=== PATIENT | female | born 1965 | race American Indian/Alaskan Native ===

== ENCOUNTER 2019-11-14 07:33 | Outpatient (CLI) | payer OTHER ==
--- NOTE | 2019-11-14 12:48 | Mammography Report ---
DIGITAL SCREENING MAMMOGRAM WITH CAD, 11/14/2019 INDICATION: Routine screening mammography. TECHNIQUE: Digital bilateral 2D mammography was obtained in the craniocaudal and mediolateral obliq ue projections. This examination was interpreted with the benefit of Computer-Aided Detection analysi s. COMPARISON: None available. However, she indicated that she had had a previous mammogram at either [place]. FINDINGS: Breast Density: The breasts are heterogeneously dense, which may obscure small masses. Bilateral retroareolar calcifications and a left retroareolar asymmetry on the MLO view require dre rison with the prior mammogram or additional imaging. No architectural distortion. IMPRESSION: Comparison with a previous mammogram is recommended. We will attempt to obtain a prior ma mmogram for comparison. If we do not obtain a prior mammogram within 30 days, a revised report will b e issued recommending a recall for additional imaging. Please be advised that the patient should not schedule an appointment for return until adequate time (at least 2 weeks) has passed for us to obtain the prior mammogram. Follow up recommendation: Obtain prior study for comparison Category 0: Incomplete. Needs additional imaging evaluation and/or prior mammograms for comparison. A "normal" or negative report should not discourage follow up or biopsy of a clinically significant f inding. A written summary of these findings will be mailed to the patient. The patient will be entered into a mammography reporting system which will generate a reminder letter for the patient's next appointmen t at the appropriate interval. The [employer] recommends yearly mammograms starting at age 40 and continuing as l bharat as a woman is in good health. Breast MRI is recommended for women with an approximate 20-25% or greater lifetime risk of breast cancer, including women with a strong family history of breast or ova deandre cancer or who have been treated for Hodgkin's disease. Signer Name: Gustavo Plaza MD Signed: 11/14/2019 12:44 PM Workstation Name: [id number]
== END 2019-11-14 07:34 | disposition home or self-care (01) ==
LOC: MAMMO 07:33
PROVIDERS: ATTEND Obstetrics & Gynecology
DX: Z12.31 Encounter for screening mammogram for malignant neoplasm of breast (principal)
CPT/HCPCS: 77067

== ENCOUNTER 2020-12-11 15:53 | Emergency (ER) | payer OTHER ==
[2020-12-11 16:21] VITALS: BP 104/86
[2020-12-11] MEDS ORDERED: dexAMETHasone 20 MG/5 ML VIAL IM ONE (17:08)
--- NOTE | 2020-12-11 17:09 | Emergency Department Report ---
ED General Adult HPI - General Chief complaint: Upper Respiratory Infection Stated complaint: CHEST PAIN/THROAT/HEAD PAIN Time Seen by Provider: 12/11/20 16:39 Source: patient Mode of arrival: Ambulatory Limitations: No Limitations - History of Present Illness Initial comments: 55-year-old -[place] female patient presents with complaints of facial pain and pressure, intermittent cough, and fatigue x5 days. Patient states a history of recurrent sinus infections. She states she is currently following with an ENT specialist and was last on antibiotics and August 2020. No fever/chills/sweats per patient, loss of taste/smell, chest pain, shortness of breath, neck pain, or difficulty moving her neck. Patient rates her facial pain as a 8/10 in severity and states it is not improving with OTC medications. Severity scale (0 -10): 10 - Related Data Previous Rx's Medication Instructions Recorded Last Taken Type Naproxen [Naprosyn TAB] 500 mg PO BID #30 tablet 12/01/15 Unknown Rx traMADoL [Ultram 50 MG tab] 50 mg PO Q6HR PRN #20 tablet 12/01/15 Unknown Rx Amoxicillin/Potassium Clav 1 each PO BID 10 Days #20 tablet 12/11/20 Unknown Rx [Augmentin 875-125 Tablet] Prednisone [predniSONE 10 mg 10 mg PO .TAPER #1 tab.ds.pk 12/11/20 Unknown Rx (6-Day Pack, 21 Tabs)] Allergies Allergy/AdvReac Type Severity Reaction Status Date / Time No Known Allergies Allergy Verified 12/11/20 16:10 ED Review of Systems ROS: Stated complaint: CHEST PAIN/THROAT/HEAD PAIN Other details as noted in HPI Constitutional: denies: chills, fever Eyes: denies: eye pain, eye discharge, vision change ENT: throat pain. denies: ear pain, dental pain Respiratory: cough. denies: shortness of breath Cardiovascular: denies: chest pain Gastrointestinal: denies: nausea, vomiting Musculoskeletal: denies: back pain Skin: denies: lesions, change in color Neurological: denies: headache Hematological/Lymphatic: swollen glands ED Past Medical Hx - Past Medical History Additional medical history: Peptic ulcers - Surgical History Additional Surgical History: tubal ligation, tonsillectomy - Social History Smoking Status: Never Smoker Substance Use Type: Alcohol - Medications Home Medications: Home Medications Medication Instructions Recorded Confirmed Last Taken Type Naproxen [Naprosyn TAB] 500 mg PO BID #30 tablet 12/01/15 Unknown Rx traMADoL [Ultram 50 MG tab] 50 mg PO Q6HR PRN #20 tablet 12/01/15 Unknown Rx Amoxicillin/Potassium Clav 1 each PO BID 10 Days #20 tablet 12/11/20 Unknown Rx [Augmentin 875-125 Tablet] Prednisone [predniSONE 10 mg 10 mg PO .TAPER #1 tab.ds.pk 12/11/20 Unknown Rx (6-Day Pack, 21 Tabs)] ED Physical Exam - General Limitations: No Limitations General appearance: alert, in no apparent distress - Head Head exam: Present: atraumatic, normocephalic - Eye Eye exam: Present: normal appearance - ENT ENT exam: Present: normal orophraynx, mucous membranes moist, other (Tonsils are surgically removed; bilateral maxillary and frontal tenderness to palpation noted; nares are patent) - Expanded ENT Exam Expanded Mouth exam: Present: tongue normal. Absent: drooling, trismus, muffled voice Throat exam: Positive: normal inspection - Neck Neck exam: Present: full ROM, lymphadenopathy (Mild submandibular lymphadenopathy noted). Absent: tenderness - Respiratory Respiratory exam: Present: normal lung sounds bilaterally. Absent: respiratory distress - Cardiovascular Cardiovascular Exam: Present: regular rate, normal rhythm. Absent: systolic murmur, diastolic murmur, rubs, gallop - Extremities Exam Extremities exam: Present: full ROM - Back Exam Back exam: Present: normal inspection - Neurological Exam Neurological exam: Present: alert, oriented X3, normal gait - Psychiatric Psychiatric exam: Present: normal affect, normal mood ED Course Vital Signs 12/11/20 16:19 Temperature 98.0 F Pulse Rate 77 Respiratory 16 Rate Blood Pressure 104/86 [Right] O2 Sat by Pulse 99 Oximetry ED Medical Decision Making - Medical Decision Making 55-year-old -[place] female patient presents with complaints of facial pain and pressure, intermittent cough, and fatigue x5 days. Patient states a history of recurrent sinus infections. She states she is currently following with an ENT specialist and was last on antibiotics and August 2020. No fever/chills/sweats per patient, loss of taste/smell, chest pain, shortness of breath, neck pain, or difficulty moving her neck. Patient rates her facial pain as a 8/10 in severity and states it is not improving with OTC medications. We will treat for acute bacterial sinusitis with Augmentin and prednisone. Recommend follow-up with ENT specialist. Her vitals are normal, she is well- appearing, she is stable for discharge home. Signs and symptoms that should prompt immediate return to the emergency department were discussed in detail with patient who verbalizes understanding. Also recommend patient get Covid testing. Critical care attestation.: If time is entered above; I have spent that time in minutes in the direct care of this critically ill patient, excluding procedure time. ED Disposition Clinical Impression: Sinusitis Qualifiers: Sinusitis location: maxillary Chronicity: acute Recurrence: recurrent Qualified Code(s): J01.01 - Acute recurrent maxillary sinusitis Disposition: TO HOME OR SELFCARE Is pt being admited?: No Condition: Stable Instructions: Sinusitis, Adult, [id number] Prescriptions: Amoxicillin/Potassium Clav [Augmentin 875-125 Tablet] 1 each PO BID 10 Days #20 tablet Prednisone [predniSONE 10 mg (6-Day Pack, 21 Tabs)] 10 mg PO .TAPER #1 tab.ds.pk Referrals: SANDRA COLVIN MD [Staff Physician] - 3-5 Days Forms: Work/School Release Form(ED)
== END 2020-12-11 17:53 | disposition home or self-care (01) ==
LOC: ED 15:53
DX: J32.9 Chronic sinusitis, unspecified (principal); Z79.899 Other long term (current) drug therapy; Z90.49 Acquired absence of other specified parts of digestive tract; Z98.51 Tubal ligation status
CPT/HCPCS: 96372; 99282; J1100

== ENCOUNTER 2021-06-02 19:25 | Emergency (ER) | payer SELFPAY | END 2021-06-03 20:58 | LOC: ED 19:25 | DX: R51.9 Headache, unspecified (principal); Z53.21 Procedure and treatment not carried out due to patient leaving prior to being seen by health care provider ==

== ENCOUNTER 2021-09-05 11:29 | Emergency (ER) | payer BC ==
[2021-09-05 12:10] VITALS: BP 112/73
--- NOTE | 2021-09-05 12:21 | Emergency Department Report ---
ED Eye Problem HPI - General Chief complaint: Eye Problems Stated complaint: EYE PROBLEM Time Seen by Provider: 09/05/21 12:02 Source: patient Mode of arrival: Ambulatory Limitations: No Limitations - History of Present Illness Initial comments: pt is a 55 yo female who presents to the ED with c/o left eye redness and irritation that began yesterday. she denies anything getting into the eye. she denies any drainage or watering. she denies any contact lens use. she denies any vision changes. no allergies to meds - Related Data Previous Rx's Medication Instructions Recorded Last Taken Type Naproxen [Naprosyn TAB] 500 mg PO BID #30 tablet 12/01/15 Unknown Rx traMADoL [Ultram 50 MG tab] 50 mg PO Q6HR PRN #20 tablet 12/01/15 Unknown Rx Amoxicillin/Potassium Clav 1 each PO BID 10 Days #20 tablet 12/11/20 Unknown Rx [Augmentin 875-125 Tablet] Prednisone [predniSONE 10 mg 10 mg PO .TAPER #1 tab.ds.pk 12/11/20 Unknown Rx (6-Day Pack, 21 Tabs)] Ketotifen Fumarate 1 drop OS BID #1 bottle 09/05/21 Unknown Rx Polymyxin B Sulf/Trimethoprim 1 drop OS Q3HR 7 Days #1 bottle 09/05/21 Unknown Rx [Polytrim Eye Drops] Allergies Allergy/AdvReac Type Severity Reaction Status Date / Time No Known Allergies Allergy Verified 09/05/21 11:41 ED Review of Systems ROS: Stated complaint: EYE PROBLEM Other details as noted in HPI Comment: All other systems reviewed and negative ED Past Medical Hx - Past Medical History Previous Medical History?: Yes Additional medical history: Peptic ulcers - Surgical History Additional Surgical History: tubal ligation, tonsillectomy - Social History Smoking Status: Never Smoker Substance Use Type: None - Medications Home Medications: Home Medications Medication Instructions Recorded Confirmed Last Taken Type Naproxen [Naprosyn TAB] 500 mg PO BID #30 tablet 12/01/15 Unknown Rx traMADoL [Ultram 50 MG tab] 50 mg PO Q6HR PRN #20 tablet 12/01/15 Unknown Rx Amoxicillin/Potassium Clav 1 each PO BID 10 Days #20 tablet 12/11/20 Unknown Rx [Augmentin 875-125 Tablet] Prednisone [predniSONE 10 mg 10 mg PO .TAPER #1 tab.ds.pk 12/11/20 Unknown Rx (6-Day Pack, 21 Tabs)] Ketotifen Fumarate 1 drop OS BID #1 bottle 09/05/21 Unknown Rx Polymyxin B Sulf/Trimethoprim 1 drop OS Q3HR 7 Days #1 bottle 09/05/21 Unknown Rx [Polytrim Eye Drops] ED Physical Exam - General Limitations: No Limitations General appearance: alert, in no apparent distress - Head Head exam: Present: atraumatic, normocephalic - Eye Eye exam: Present: PERRL, EOMI, conjunctival injection (left). Absent: periorbital swelling, periorbital tenderness - ENT ENT exam: Present: mucous membranes moist - Neurological Exam Neurological exam: Present: alert, oriented X3 - Psychiatric Psychiatric exam: Present: normal affect, normal mood - Skin Skin exam: Present: warm, dry, intact ED Course Vital Signs 09/05/21 09/05/21 09/05/21 11:43 11:59 12:00 Temperature 97.9 F 98.7 F Pulse Rate 68 62 Respiratory 15 12 14 Rate Blood Pressure 127/88 112/73 Blood Pressure [Left] O2 Sat by Pulse 96 100 99 Oximetry 09/05/21 12:12 Temperature 98.7 F Pulse Rate 62 Respiratory 14 Rate Blood Pressure Blood Pressure 112/73 [Left] O2 Sat by Pulse 99 Oximetry ED Medical Decision Making - Medical Decision Making pt is a 55 yo female who presents to the ED with c/o left eye redness and irritation that began yesterday. she denies anything getting into the eye. she denies any drainage or watering. she denies any contact lens use. she denies any vision changes. no allergies to meds. Vitals are normal. On exam: Left conjunctival injection, no drainage, EOMI, PERRLA, no periorbital edema or erythema. Examination appears consistent with conjunctivitis. Patient given prescription for medication. Advised patient please use medication as prescribed. please separate using eye drops by one hour. follow up with your critical care nurse specialist. return to the emergency room for any new or worsening symptoms Critical care attestation.: If time is entered above; I have spent that time in minutes in the direct care of this critically ill patient, excluding procedure time. ED Disposition Clinical Impression: Conjunctivitis Qualifiers: Conjunctivitis type: acute Acute conjunctivitis type: unspecified Laterality: left Qualified Code(s): H10.32 - Unspecified acute conjunctivitis, left eye Disposition: 01 HOME / SELF CARE / HOMELESS Is pt being admited?: No Does the pt Need Aspirin: No Condition: Stable Instructions: Viral Conjunctivitis, Adult, Bacterial Conjunctivitis, Adult Additional Instructions: please use medication as prescribed. please separate using eye drops by one hour. follow up with your critical care nurse specialist. return to the emergency room for any new or worsening symptoms Prescriptions: Ketotifen Fumarate 1 drop OS BID #1 bottle Polymyxin B Sulf/Trimethoprim [Polytrim Eye Drops] 1 drop OS Q3HR 7 Days #1 bottle Referrals: your, critical care nurse specialist [Other] - 3-5 Days Forms: Work/School Release Form(ED) Time of Disposition: 12:21 Print Language: SINHALA
== END 2021-09-05 13:18 | disposition home or self-care (01) ==
LOC: ED 11:29
DX: H10.32 Unspecified acute conjunctivitis, left eye (principal)
CPT/HCPCS: 99282

== ENCOUNTER 2021-11-05 08:13 | Emergency (ER) | payer SELFPAY ==
[2021-11-05 10:43] VITALS: BP 120/80
== END 2021-11-05 10:46 | disposition home or self-care (01) ==
LOC: ED 08:13
DX: J40 Bronchitis, not specified as acute or chronic (principal); F12.90 Cannabis use, unspecified, uncomplicated; Z90.89 Acquired absence of other organs; Z98.51 Tubal ligation status; Z79.899 Other long term (current) drug therapy
CPT/HCPCS: 71046; 93005; 93010; 99283

== ENCOUNTER 2021-12-31 13:48 | Emergency (ER) | payer BC ==
[2021-12-31] MEDS ORDERED: METOCLOPRAMIDE 10 MG/2 ML INJ IV ONE (15:10)
[2021-12-31] MEDS ORDERED: FAMOTIDINE 20 MG/2 ML INJ IV ONE (15:10)
[2021-12-31] MEDS ORDERED: DICYCLOMINE 20 MG TAB PO ONE (15:10)
[2021-12-31] MEDS ORDERED: SODIUM CHLORIDE 0.9% 1000 ML 1,000 ML IV ONE ×3 (15:10→20:36)
[2021-12-31] MEDS ORDERED: diphenhydrAMINE 50 MG/ML VIAL IV ONE (15:10)
[2021-12-31 16:19] LABS: Basophils % (Auto) 0.6 % (0.0-1.8); Eosinophils # (Auto) 0.2 K/mm3 (0.0-0.4); Eosinophils % (Auto) 4.5 % (0.0-4.3); Hematocrit 42.6 % (30.3-42.9); Hemoglobin 14.1 gm/dl (10.1-14.3); Lymphocytes # (Auto) 1.3 K/mm3 (1.2-5.4); Lymphocytes % (Auto) 30.2 % (13.4-35.0); Mean Corpuscular HGB Conc 33 % (30-34); Mean Corpuscular Volume 95 fl (79-97); Monocytes # (Auto) 0.5 K/mm3 (0.0-0.8); Monocytes % (Auto) 11.9 % (0.0-7.3); Platelet Count 162 K/mm3 (140-440); Red Cell Distribution Width 14.4 % (13.2-15.2)
[2021-12-31 16:33] LABS: Albumin 4.1 g/dL (3.9-5); Calcium 9.3 mg/dL (8.4-10.2)
--- NOTE | 2021-12-31 18:42 | Cat Scan Report ---
CT ABDOMEN AND PELVIS WITH INTRAVENOUS CONTRAST INDICATION / CLINICAL INFORMATION: Abdominal pain with nausea, vomiting and diarrhea. TECHNIQUE: 100 cc Omnipaque [address] scans at this location are performed using CT d ose reduction for ALEXANDRA by means of automated exposure control. COMPARISON: None available. FINDINGS: ABDOMEN: There are several small simple hepatic cysts, the largest which measures 1.8 cm in the media l segment of the left lobe. There is a 1.2 cm hypervascular lesion in the superior aspect of the live r consistent with flash filling of a hemangioma or a small vascular malformation. The gallbladder, bi le ducts, pancreas, spleen, adrenal glands and kidneys are normal. There is a moderate amount of stool throughout the colon. I see no evidence of bowel obstruction, wal l thickening or free air. No adenopathy is present. There are [id number] atherosclerotic calcif ications involving aorta without aneurysm. The lung bases are clear. PELVIS: There is an enlarged uterus containing multiple fibroids. I see no evidence of adnexal mass o r free fluid. The distal ureters and urinary bladder are normal. A normal appendix is present and the re is no evidence of diverticulitis. I do not identify a hernia. There is mild lower lumbar spondylos is. IMPRESSION: 1. No acute abnormality is identified. 2. Enlarged uterus containing multiple fibroids. Signer Name: Andi Arnold MD Signed: 12/31/2021 6:38 PM Workstation Name: [id number]
[2021-12-31 19:56] LABS: Bilirubin,Urine NEG (Negative); Blood,Urine MOD (Negative); Color,Urine Straw (Yellow); Mucus,Urine FEW /HPF; Protein,Urine <15 mg/dL mg/dL (Negative); Urobilinogen,Urine < 2.0 mg/dL (<2.0); WBC,Urine < 1.0 /HPF (0.0-6.0)
[2021-12-31 19:57] LABS: HCG Qualitative,Urine Negative (Negative)
--- NOTE | 2021-12-31 20:44 | Emergency Department Report ---
ED N/V/D HPI - General Chief complaint: Nausea/Vomiting/Diarrhea Stated complaint: STOMACH VIRUS/DIARRHEA Time Seen by Provider: 12/31/21 15:09 Source: patient Mode of arrival: Ambulatory Limitations: No Limitations - History of Present Illness Initial comments: This is a 56-year-old female nontoxic, well nourished in appearance, no acute signs of distress presents to the ED with c/o of nausea, vomiting, diarrhea, abdominal pain several days. Patient describes vomiting as food content and yellow gastric acid. Patient describes abdominal pain as sharp and aching with level of 6/10 diffuse. Patient denies chest pain, short of breath, fever, h emoptysis, blood in stool, chills, headache, stiff neck, numbness or tingling. Patient denies any constipation. Denies any blood in stool. Patient denies any recent travels. Patient denies any allergies. MD complaint: nausea, vomiting, diarrhea -: days(s) Associated Abdominal Pain: No Location: diffuse Radiation: none Severity: mild Pain Scale: 7 Quality: cramping, sharp Consistency: intermittent Improves with: none Worsens with: none Associated Symptoms: nausea/vomiting. denies: myalgias, chest pain, cough, diaphoresis, fever/chills, headaches, loss of appetite, malaise, rash, dysuria, shortness of breath, syncope, weakness - Related Data Previous Rx's Medication Instructions Recorded Last Taken Type Prednisone [predniSONE 10 mg 10 mg PO .TAPER #1 tab.ds.pk 12/11/20 Unknown Rx (6-Day Pack, 21 Tabs)] Ketotifen Fumarate 1 drop OS BID #1 bottle 09/05/21 Unknown Rx Polymyxin B Sulf/Trimethoprim 1 drop OS Q3HR 7 Days #1 bottle 09/05/21 Unknown Rx [Polytrim Eye Drops] Acetaminophen [Non-Aspirin Extra 500 mg PO Q6HR PRN #30 tablet 11/05/21 Unknown Rx Strength] Albuterol Sulfate [Proair 90 mcg IH Q4HR PRN #2 aer.pow.ba 11/05/21 Unknown Rx Respiclick] Benzonatate [Tessalon Perles] 100 mg PO Q8HR PRN #30 capsule 11/05/21 Unknown Rx Ibuprofen [Motrin] 600 mg PO Q8H PRN #30 tablet 11/05/21 Unknown Rx Dicyclomine [Bentyl] 20 mg PO BID PRN #12 tablet 12/31/21 Unknown Rx Ondansetron [Zofran Odt] 4 mg PO Q8HR PRN #12 tab.rapdis 12/31/21 Unknown Rx Allergies Allergy/AdvReac Type Severity Reaction Status Date / Time No Known Allergies Allergy Verified 09/05/21 11:41 ED Review of Systems ROS: Stated complaint: STOMACH VIRUS/DIARRHEA Other details as noted in HPI Comment: All other systems reviewed and negative Constitutional: denies: chills, fever Eyes: denies: eye pain, eye discharge, vision change ENT: denies: ear pain, throat pain Respiratory: denies: cough, shortness of breath, wheezing Cardiovascular: denies: chest pain, palpitations Endocrine: no symptoms reported Gastrointestinal: abdominal pain, nausea, vomiting, diarrhea. denies: constipation, hematemesis, melena, hematochezia Genitourinary: denies: urgency, dysuria, discharge Musculoskeletal: denies: back pain, joint swelling, arthralgia Skin: denies: rash, lesions Neurological: denies: headache, weakness, paresthesias Psychiatric: denies: anxiety, depression Hematological/Lymphatic: denies: easy bleeding, easy bruising ED Past Medical Hx - Past Medical History Additional medical history: Peptic ulcers - Surgical History Additional Surgical History: tubal ligation, tonsillectomy - Social History Smoking Status: Never Smoker Substance Use Type: None - Medications Home Medications: Home Medications Medication Instructions Recorded Confirmed Last Taken Type Prednisone [predniSONE 10 mg 10 mg PO .TAPER #1 tab.ds.pk 12/11/20 Unknown Rx (6-Day Pack, 21 Tabs)] Ketotifen Fumarate 1 drop OS BID #1 bottle 09/05/21 Unknown Rx Polymyxin B Sulf/Trimethoprim 1 drop OS Q3HR 7 Days #1 bottle 09/05/21 Unknown Rx [Polytrim Eye Drops] Acetaminophen [Non-Aspirin Extra 500 mg PO Q6HR PRN #30 tablet 11/05/21 Unknown Rx Strength] Albuterol Sulfate [Proair 90 mcg IH Q4HR PRN #2 aer.pow.ba 11/05/21 Unknown Rx Respiclick] Benzonatate [Tessalon Perles] 100 mg PO Q8HR PRN #30 capsule 11/05/21 Unknown Rx Ibuprofen [Motrin] 600 mg PO Q8H PRN #30 tablet 11/05/21 Unknown Rx Dicyclomine [Bentyl] 20 mg PO BID PRN #12 tablet 12/31/21 Unknown Rx Ondansetron [Zofran Odt] 4 mg PO Q8HR PRN #12 tab.rapdis 12/31/21 Unknown Rx ED Physical Exam - General Limitations: No Limitations General appearance: alert, in no apparent distress - Head Head exam: Present: atraumatic, normocephalic - Eye Eye exam: Present: normal appearance - Neck Neck exam: Present: normal inspection, full ROM. Absent: lymphadenopathy - Respiratory Respiratory exam: Present: normal lung sounds bilaterally. Absent: respiratory distress, wheezes, rales, rhonchi, stridor, chest wall tenderness, accessory muscle use, decreased breath sounds, prolonged expiratory - Cardiovascular Cardiovascular Exam: Present: regular rate, normal rhythm, normal heart sounds. Absent: bradycardia, tachycardia, irregular rhythm, systolic murmur, diastolic murmur, rubs, gallop - GI/Abdominal GI/Abdominal exam: Present: soft, tenderness (diffuse), normal bowel sounds. Absent: distended, guarding, rebound, rigid, diminished bowel sounds - Extremities Exam Extremities exam: Present: full ROM - Back Exam Back exam: Present: normal inspection, full ROM. Absent: tenderness, CVA tenderness (R), CVA tenderness (L), muscle spasm, paraspinal tenderness, vertebral tenderness, rash noted - Neurological Exam Neurological exam: Present: alert, oriented X3, normal gait - Psychiatric Psychiatric exam: Present: normal affect, normal mood - Skin Skin exam: Present: warm, dry, intact, normal color. Absent: rash ED Course Vital Signs 12/31/21 12/31/21 12/31/21 14:42 20:21 21:09 Temperature 98.1 F Pulse Rate 64 60 Respiratory 18 12 Rate Blood Pressure 122/83 Blood Pressure 119/73 132/82 [Left] O2 Sat by Pulse 98 100 Oximetry - Reevaluation(s) Reevaluation #1: 12/31/21 20:36 Patient is speaking in full sentences with no signs of distress noted. ED Medical Decision Making - Lab Data Result diagrams: 12/31/21 16:03 12/31/21 16:03 Lab Results 12/31/21 12/31/21 12/31/21 Range/Units 16:03 16:03 19:42 WBC 4.3 L (4.5-11.0) K/mm3 RBC 4.50 (3.65-5.03) M/mm3 Hgb 14.1 (10.1-14.3) gm/dl Hct 42.6 (30.3-42.9) % MCV 95 (79-97) fl MCH 31 (28-32) pg MCHC 33 (30-34) % RDW 14.4 (13.2-15.2) % Plt Count 162 (140-440) K/mm3 Lymph % (Auto) 30.2 (13.4-35.0) % Prentiss % (Auto) 11.9 H (0.0-7.3) % Eos % (Auto) 4.5 H (0.0-4.3) % Baso % (Auto) 0.6 (0.0-1.8) % Lymph # (Auto) 1.3 (1.2-5.4) K/mm3 Prentiss # (Auto) 0.5 (0.0-0.8) K/mm3 Eos # (Auto) 0.2 (0.0-0.4) K/mm3 Baso # (Auto) 0.0 (0.0-0.1) K/mm3 Seg Neutrophils % 52.8 (40.0-70.0) % Seg Neutrophils # 2.3 (1.8-7.7) K/mm3 Sodium 138 (137-145) mmol/L Potassium 3.8 (3.6-5.0) mmol/L Chloride 101.9 (98-107) mmol/L Carbon Dioxide 25 (22-30) mmol/L Anion Gap 15 mmol/L BUN 11 (7-17) mg/dL Creatinine 1.2 (0.6-1.2) mg/dL Estimated GFR 57 ml/min BUN/Creatinine Ratio 9 % Glucose 83 (65-100) mg/dL Calcium 9.3 (8.4-10.2) mg/dL Total Bilirubin 0.40 (0.1-1.2) mg/dL AST 11 (5-40) units/L ALT 17 (7-56) units/L Alkaline Phosphatase 71 (35-129) units/L Total Protein 6.8 (6.3-8.2) g/dL Albumin 4.1 (3.9-5) g/dL Albumin/Globulin Ratio 1.5 % Lipase 28 (13-60) units/L Urine Color Straw (Yellow) Urine Turbidity Clear (Clear) Urine pH 7.0 (5.0-7.0) Ur Specific Dameron 1.055 H (1.003-1.030) Urine Protein <15 mg/dl (Negative) mg/dL Urine Glucose (UA) Neg (Negative) mg/dL Urine Ketones Neg (Negative) mg/dL Urine Blood Mod (Negative) Urine Nitrite Neg (Negative) Urine Bilirubin Neg (Negative) Urine Urobilinogen < 2.0 (<2.0) mg/dL Ur Leukocyte Esterase Neg (Negative) Urine WBC (Auto) < 1.0 (0.0-6.0) /HPF Urine RBC (Auto) 1.0 (0.0-6.0) /HPF U Epithel Cells (Auto) 4.0 (0-13.0) /HPF Urine Mucus Few /HPF Urine HCG, Qual Negative (Negative) - Radiology Data [facility] [address] [place] [address] Cat Scan Report Signed Patient: CRISTIAN MONTENEGRO MR#: [id number] 24 : 1965 Acct:[id number] Age/Sex: 56 / F ADM Date: 12/31/21 Loc: ED Attending Dr: Ordering Physician: DAMARIS CARRIZALES NP Date of Service: 12/31/21 Procedure(s): CT abdomen pelvis w con Accession Number(s): [id number] cc: DAMARIS CARRIZALES NP CT ABDOMEN AND PELVIS WITH INTRAVENOUS CONTRAST INDICATION / CLINICAL INFORMATION: Abdominal pain with nausea, vomiting and diarrhea. TECHNIQUE: 100 cc Omnipaque [address] scans at this location are performed using CT dose reduction for ALARA by means of automated exposure control. COMPARISON: None available. FINDINGS: ABDOMEN: There are several small simple hepatic cysts, the largest which measures 1.8 cm in the medial segment of the left lobe. There is a 1.2 cm hypervascular lesion in the superior aspect of the liver consistent with flash filling of a hemangioma or a small vascular malformation. The gallbladder, bile ducts, pancreas, spleen, adrenal glands and kidneys are normal. There is a moderate amount of stool throughout the colon. I see no evidence of bowel obstruction, wall thickening or free air. No adenopathy is present. There are [id number] atherosclerotic calcifications involving aorta without aneurysm. The lung bases are clear. PELVIS: There is an enlarged uterus containing multiple fibroids. I see no evidence of adnexal mass or free fluid. The distal ureters and urinary bladder are normal. A normal appendix is present and there is no evidence of diverticulitis. I do not identify a hernia. There is mild lower lumbar spondylosis. IMPRESSION: 1. No acute abnormality is identified. 2. Enlarged uterus containing multiple fibroids. Signer Name: Andi Arnold MD Signed: 12/31/2021 6:38 PM Workstation Name: [id number] Transcribed By: RT Dictated By: Andi Arnold MD Electronically Authenticated By: Andi Arnold MD Signed Date/Time: 12/31/211837 DD/ 32 TD/TT: - Medical Decision Making This is a 56-year-old female that presents with nausea, diarrhea and abdominal pain. Patient is stable and was examined by me. Labs obtained. UA obtained. Xr abdomen/chest xray obtained and dictated by the radiologist. Patient is notified of the report with no questions noted by the patient. Vital signs are stable prior to discharge. Patient received Zofran and 1L Normal saline in the ED which patient stated symptoms has resovled and subsided. A by mouth challenge has been obtained and patient tolerated well with no nausea vomiting. Patient was also instructed to Follow-up with a primary care doctor in 3-5 days or if symptoms worsen and continue return to emergency room as soon as possible. At time of discharge, the patient does not seem toxic or ill in appearance. No acute signs of distress noted. Patient agrees to discharge treatment plan of care. No further questions noted by the patient. Critical care attestation.: If time is entered above; I have spent that time in minutes in the direct care of this critically ill patient, excluding procedure time. ED Disposition Clinical Impression: Nausea Abdominal pain Qualifiers: Abdominal location: generalized Qualified Code(s): R10.84 - Generalized abdominal pain Diarrhea Qualifiers: Diarrhea type: unspecified type Qualified Code(s): R19.7 - Diarrhea, uns pecified Disposition: 01 HOME / SELF CARE / HOMELESS Is pt being admited?: No Does the pt Need Aspirin: No Condition: Stable Instructions: Nausea and Vomiting, Adult, Yeus-et-Htym, Abdominal Pain, Adult, [id number] Additional Instructions: Follow-up with a primary care and lubricating engineer doctor in 3-5 days or if symptoms worsen and continue return to emergency room as soon as possible. Prescriptions: Dicyclomine [Bentyl] 20 mg PO BID PRN #12 tablet PRN Reason: abdominal pain Ondansetron [Zofran Odt] 4 mg PO Q8HR PRN #12 tab.rapdis PRN Reason: Nausea Referrals: NOLAN CHISHOLM MD [Primary Care Provider] - 3-5 Days PRIMARY CAREMD [Referring] - 3-5 Days [facility] [Provider Group] - 3-5 Days Forms: Work/School Release Form(ED) Time of Disposition: 21:32
[2021-12-31 21:09] VITALS: BP 132/82
== END 2021-12-31 21:42 | disposition home or self-care (01) ==
LOC: ED 13:48
DX: R11.2 Nausea with vomiting, unspecified (principal); R10.9 Unspecified abdominal pain; R19.7 Diarrhea, unspecified
CPT/HCPCS: 36415; 74177; 80053; 81001; 81025; 83690; 85025; 96361; 96374; 96375; 99284; J1200; J2765; J3490; J7030; Q9967; 96368

== ENCOUNTER 2022-01-09 06:24 | Emergency (ER) | payer BC ==
[2022-01-09 06:32] VITALS: BP 146/82
--- NOTE | 2022-01-09 08:32 | Emergency Department Report ---
Minor Respiratory - HPI Chief Complaint: Eye Problems Stated Complaint: BILATERAL EYE PAIN AND SWELLING Time Seen by Provider: 01/09/22 08:29 Duration: 2 Days Pain Location: Other Severity: mild Minor Respiratory: Yes Able to Tolerate Fluids, No Rhinorrhea, No Sore Throat, No Ear Pain, No Cough, No Sick Contacts, No Hemoptysis, No Chest Pain, No Shortness of Breath, No Fever Other History: Patient is a 56-year-old female that comes to the emergency room complaining of sinus pressure and congestion. She also endorses her eyes being swollen and red this morning upon awakening. She denies fever or chills. She denies cough. She is ambulatory, [id number] nontoxic and afebrile on exam ED Review of Systems ROS: Stated complaint: BILATERAL EYE PAIN AND SWELLING Other details as noted in HPI Comment: All other systems reviewed and negative ED Past Medical Hx - Past Medical History Previous Medical History?: Yes Additional medical history: Peptic ulcers - Surgical History Past Surgical History?: Yes Additional Surgical History: tubal ligation, tonsillectomy - Family History Family history: no significant - Social History Smoking Status: Never Smoker Substance Use Type: None - Medications Home Medications: Home Medications Medication Instructions Recorded Confirmed Last Taken Type Cetirizine HCl [ZyrTEC] 10 mg PO DAILY #30 capsule 01/09/22 Unknown Rx Fluticasone [Flonase] 1 spray NS QDAY #1 bottle 01/09/22 Unknown Rx Polymyxin B Sulf/Trimethoprim 1 drop OS Q3HR 7 Days #1 bottle 01/09/22 Unknown Rx [Polytrim Eye Drops] Prednisone [predniSONE 10 mg 10 mg PO .TAPER #1 tab.ds.pk 01/09/22 Unknown Rx (6-Day Pack, 21 Tabs)] methylPREDNISolone [Medrol 4MG 4 mg PO FS #1 tab.ds.pk 01/09/22 Unknown Rx DOSEPAK (21 tabs)] Minor Respiratory Exam - Exam General: Vital signs noted. No distress. Alert and acting appropriately. HEENT: Yes Pharyngeal Erythema, Yes Moist Mucous Membranes, Yes Conjuctival Injection, Yes Frontal Tenderness, Yes Maxillary Tenderness, No Pharyngeal Exudates, No Rhinorrhea Ear: Neither TM Bulge, Neither TM Erythema, Neither EAC Pain, Neither EAC Discharge Neck: Yes Supple, No Adenopathy Lungs: Yes Good Air Exchange, No Wheezes, No Ronchi, No Stridor, No Cough, No Labored Respirations, No Retractions, No Use of Accessory Muscles, No Other Abnormal Lung Sounds Heart: Yes Regular, No Murmur Abdomen: Yes Normal Bowel Sounds, No Tenderness, No Peritoneal Signs Skin: No Rash, No Edema Neurologic: Alert and oriented, no deficits. Musculoskeletal: Unremarkable. ED Course Vital Signs 01/09/22 06:30 Temperature 98.6 F Pulse Rate 67 Respiratory 18 Rate Blood Pressure 146/82 O2 Sat by Pulse 99 Oximetry ED Medical Decision Making - Medical Decision Making Vital Signs 01/09/22 06:30 Temperature 98.6 F Pulse Rate 67 Respiratory 18 Rate Blood Pressure 146/82 O2 Sat by Pulse 99 Oximetry Patient has normal vital signs. She has sinus tenderness and a red throat. Eyes are red. Patient nontoxic on exam. Her lungs are clear. She is taking p.o. Most likely viral sinusitis. No indication for antibiotics. No fever. No chills. No purulent sputum. Will DC home with discharge plan of care including meds, activity, diet and follow-up. Patient verbalizes understanding of plan of care - Differential Diagnosis URI versus sinusitis Critical care attestation.: If time is entered above; I have spent that time in minutes in the direct care of this critically ill patient, excluding procedure time. ED Disposition Clinical Impression: Sinusitis Qualifiers: Sinusitis location: frontal Chronicity: acute Recurrence: recurrent Qualified Code(s): J01.11 - Acute recurrent frontal sinusitis Disposition: HOME / SELF CARE / HOMELESS Is pt being admited?: No Does the pt Need Aspirin: No Condition: Stable Instructions: Sinusitis, Adult, [id number] Additional Instructions: Medications as ordered today [id number] Motrin and Tylenol for pain Bentyl is the medicine you had an allergy to Follow-up with your primary care Stay well-hydrated with water Prescriptions: Fluticasone [Flonase] 1 spray NS QDAY #1 bottle methylPREDNISolone [Medrol 4MG DOSEPAK (21 tabs)] 4 mg PO FS #1 tab.ds.pk Polymyxin B Sulf/Trimethoprim [Polytrim Eye Drops] 1 drop OS Q3HR 7 Days #1 bottle Prednisone [predniSONE 10 mg (6-Day Pack, 21 Tabs)] 10 mg PO .TAPER #1 tab.ds.pk Cetirizine HCl [ZyrTEC] 10 mg PO DAILY #30 capsule Referrals: PRIMARY CARE, [Primary Care Provider] - 3-5 Days Forms: Work/School Release Form(ED) Time of Disposition: 08:30
== END 2022-01-09 08:54 | disposition home or self-care (01) ==
LOC: ED 06:24
DX: J32.9 Chronic sinusitis, unspecified (principal); H57.13 Ocular pain, bilateral; Z90.89 Acquired absence of other organs; Z98.51 Tubal ligation status; Z79.899 Other long term (current) drug therapy
CPT/HCPCS: 99282

== ENCOUNTER 2022-04-14 22:24 | Emergency (ER) | payer BC ==
[2022-04-15 00:49] VITALS: BP 125/77
[2022-04-15] MEDS ORDERED: diphenhydrAMINE 50 MG/ML VIAL IM ONE (05:32)
[2022-04-15] MEDS ORDERED: FAMOTIDINE 20 MG TAB PO ONE (05:32)
[2022-04-15] MEDS ORDERED: predniSONE 20 MG TAB PO ONE (05:33)
--- NOTE | 2022-04-15 05:37 | Emergency Department Report ---
ED Rash HPI - HPI Chief Complaint: Skin Rash Stated Complaint: RASH OVER BODY Duration: 3 Days Location: Neck, Chest, Upper Extremities, Lower Extremities Suspected Cause: Unknown Rash Symptoms: Yes Itching, No Facial Swelling, No Tongue/Oral Swelling, No Breathing Difficulties, No Choking Sensation, No Wheezing/Dyspnea, No Peeling, No Blistering, No Fever, No Lightheaded, No Malaise, No Myalgias Severity: moderate ED Review of Systems ROS: Stated complaint: RASH OVER BODY Other details as noted in HPI Eyes: as per HPI ENT: denies: throat pain, dental pain Respiratory: no symptoms reported Cardiovascular: denies: chest pain, palpitations, dyspnea on exertion Endocrine: no symptoms reported. denies: excessive sweating, flushing, intolerance to cold Gastrointestinal: denies: abdominal pain, nausea, vomiting Musculoskeletal: denies: back pain, joint swelling, arthralgia Skin: rash, lesions, pruritus Neurological: headache. denies: weakness, numbness, paresthesias Psychiatric: denies: as per HPI Hematological/Lymphatic: denies: as per HPI ED Past Medical Hx - Past Medical History Additional medical history: Peptic ulcers - Surgical History Additional Surgical History: tubal ligation, tonsillectomy - Social History Smoking Status: Never Smoker Substance Use Type: None - Medications Home Medications: Home Medications Medication Instructions Recorded Confirmed Last Taken Type Cetirizine HCl [ZyrTEC] 10 mg PO DAILY #30 capsule 01/09/22 Unknown Rx Fluticasone [Flonase] 1 spray NS QDAY #1 bottle 01/09/22 Unknown Rx Polymyxin B Sulf/Trimethoprim 1 drop OS Q3HR 7 Days #1 bottle 01/09/22 Unknown Rx [Polytrim Eye Drops] Prednisone [predniSONE 10 mg 10 mg PO .TAPER #1 tab.ds.pk 01/09/22 Unknown Rx (6-Day Pack, 21 Tabs)] Calamine/Menthol/Petrolat/Zinc 113 gm TP TID #1 04/15/22 Unknown Rx [Remedy Calazime Protect Paste] diphenhydrAMINE [Benadryl CAP] 25 mg PO Q6HR PRN #20 capsule 04/15/22 Unknown Rx methylPREDNISolone [Medrol 4MG 4 mg PO FS #1 tab.ds.pk 04/15/22 Unknown Rx DOSEPAK (21 tabs)] Rash Exam - Exam General: Vital signs noted. No distress. Alert and acting appropriately. HEENT: No Periorbital Edema, No Conjuctival Injection, No Chemosis, No Perioral Edema Lungs: Yes Good Air Exchange, No Wheezes, No Ronchi Heart: Yes Regular Skin: Yes Urticarial Rash, No Morbilliform rash, No Bulla(e), No Weeping, No Tenderness, No Erythema, No Edema, No Encrustations, No Other Other: Positive: Abdomen Normal, Neurologic Normal, Musculoskeletal Normal ED Course Vital Signs 04/15/22 00:48 Temperature 99.0 F Pulse Rate 60 Respiratory 17 Rate Blood Pressure 125/77 [Right] O2 Sat by Pulse 97 Oximetry ED Medical Decision Making - Medical Decision Making 57-year-old female with itchy rash x3 days, described as burning, unknown source. Denies new clothing detergents foods or outdoor exposure no joint pain, no fever, no cough cold congestion no airway involvement no GI related symptoms. Plan to treat with antihistamines, supportive therapy, dermatology referral, also encourage patient to pay attention to triggers, which could be food, detergent, clothing or new medications. At time of discharge patient remained stable nontoxic-appearing and verbalizes understanding of everything discussed Critical care attestation.: If time is entered above; I have spent that time in minutes in the direct care of this critically ill patient, excluding procedure time. ED Disposition Clinical Impression: Rash and nonspecific skin eruption, Dermatitis Disposition: 01 HOME / SELF CARE / HOMELESS Is pt being admited?: No Does the pt Need Aspirin: No Condition: Stable Instructions: Hives, Rash, Adult Prescriptions: diphenhydrAMINE [Benadryl CAP] 25 mg PO Q6HR PRN #20 capsule PRN Reason: Itching methylPREDNISolone [Medrol 4MG DOSEPAK (21 tabs)] 4 mg PO FS #1 tab.ds.pk Calamine/Menthol/Petrolat/Zinc [Remedy Calazime Protect Paste] 113 gm TP TID #1 Referrals: COLLIN SUERO MD [Referring] - 3-5 Days
== END 2022-04-15 06:30 | disposition home or self-care (01) ==
LOC: ED 22:24
DX: R21 Rash and other nonspecific skin eruption (principal); L30.9 Dermatitis, unspecified; Z98.890 Other specified postprocedural states
CPT/HCPCS: 96372; 99282; J1200